=== PATIENT | female | born 1995 | race Caucasian/White ===

== ENCOUNTER → 2016-07-16 | Outpatient (REF) | payer BC | LOC: M SFHCLERA 11:23 | PROVIDERS: ATTEND Family Medicine | DX: Z51.81 Encounter for therapeutic drug level monitoring (principal); Z53.9 Procedure and treatment not carried out, unspecified reason ==

== ENCOUNTER → 2016-11-05 | Outpatient (CLI) | payer BC, MEDICAID, OTHER ==
--- NOTE | 2016-11-05 12:57 | REP ---
RIGHT WRIST, FOUR VIEWS: HISTORY: Pain. There is no acute fracture or dislocation. The joint spaces are normal in appearance. IMPRESSION: There is no acute fracture or dislocation. Signed by Medardo Garcia MD 11/05/2016 01:05 P
== END ==
LOC: M LRY 11:21
PROVIDERS: ATTEND Family Medicine
DX: M25.531 Pain in right wrist (principal)

== ENCOUNTER → 2017-01-12 | Outpatient (REF) | payer OTHER | LOC: M SFHCLERA 10:47 | PROVIDERS: ATTEND Physician Assistant | DX: J02.9 Acute pharyngitis, unspecified (principal) ==

== ENCOUNTER → 2017-07-08 | Outpatient (REF) | payer OTHER | LOC: M SFHCLERA 09:30 | PROVIDERS: ATTEND Nurse Practitioner Family | DX: R50.9 Fever, unspecified (principal) ==

== ENCOUNTER 2018-04-10 21:36 | Emergency (ER) | payer OTHER, MEDICAID ==
[2018-04-10 22:19] LABS: BASO % 0.3 % (0.0-1.0); EOS # 0.1 10^3/uL (0.0-0.50); EOS % 0.8 % (0.0-3.0); HEMATOCRIT 43.9 % (36.0-47.0); HEMOGLOBIN 13.7 g/dl (12.0-15.5); IMMATURE GRANULOCYTE % 0.3 % (0-3.0); LYMPH % 23.4 % (24.0-44.0); MEAN CORPUSCULAR HEMOGLOBIN 25.7 pg (27.0-33.0); MEAN CORPUSCULAR HGB CONC 31.2 g/dl (32.0-36.5); MEAN CORPUSCULAR VOLUME 82.4 fl (80.0-96.0); MONO # 0.8 10^3/uL (0.0-0.8); NEUTROPHILS % 69.2 % (36.0-66.0); PLATELET COUNT, AUTOMATED 281 10^3/uL (150-450); RED BLOOD COUNT 5.33 10^6/uL (4.00-5.40); RED CELL DISTRIBUTION WIDTH 14.5 % (11.5-14.5)
[2018-04-10 22:30] LABS: SPECIFIC GRAVITY UR AUTO RFX 1.026 (1.002-1.035)
[2018-04-10 22:31] LABS: KETONE, URINE AUTO RFX NEGATIVE (NEGATIVE); LEUKOCYTE ESTERASE UR AUTO RFX NEGATIVE (NEGATIVE); MUCUS, URINE RFX SMALL (NEGATIVE); NITRITE, URINE AUTO RFX NEGATIVE (NEGATIVE); RBC, URINE AUTO RFX 2 /HPF (0-3); SQUAM EPITHELIAL CELL UR AURFX 1 /HPF (0-6); WBC, URINE AUTO RFX 4 /HPF (0-3)
[2018-04-10] MEDS: NS 1,000 ML IV (22:31)
[2018-04-10] MEDS: ONDANSETRON 4MG/2ML VIAL (J2405) IV (22:31)
[2018-04-10] MEDS: KETOROLAC 30 MG/ML VIAL (J1885) IV (22:32)
[2018-04-10 22:36] LABS: ANION GAP 6 MEQ/L (8-16); BLOOD UREA NITROGEN 11 MG/DL (7-18); CARBON DIOXIDE LEVEL 29 MEQ/L (21-32); CHLORIDE LEVEL 106 MEQ/L (98-107); GLOMERULAR FILTRATION RATE > 60.0 (>60); GLUCOSE, FASTING 92 MG/DL (70-100); POTASSIUM SERUM 3.9 MEQ/L (3.5-5.1); SODIUM LEVEL 141 MEQ/L (136-145)
[2018-04-10] MEDS: BENZONATATE 100 MG CAP PO (23:47)
== END 2018-04-10 23:55 | disposition home or self-care (01) ==
LOC: M ED 21:36
DX: J20.9 Acute bronchitis, unspecified (principal); R10.9 Unspecified abdominal pain; R11.2 Nausea with vomiting, unspecified; Z88.8 Allergy status to other drugs, medicaments and biological substances; J45.909 Unspecified asthma, uncomplicated
CPT/HCPCS: J2405

== ENCOUNTER → 2018-05-03 | Outpatient (REF) | payer OTHER ==
[2018-05-03 12:31] LABS: BASO % 0.5 % (0.0-1.0); EOS # 0.1 10^3/uL (0.0-0.50); EOS % 1.3 % (0.0-3.0); HEMATOCRIT 44.6 % (36.0-47.0); HEMOGLOBIN 14.2 g/dl (12.0-15.5); IMMATURE GRANULOCYTE % 0.1 % (0-3.0); LYMPH # 2.3 10^3/uL (1.5-6.5); LYMPH % 29.8 % (24.0-44.0); MEAN CORPUSCULAR HEMOGLOBIN 26.1 pg (27.0-33.0); MEAN CORPUSCULAR HGB CONC 31.8 g/dl (32.0-36.5); MEAN CORPUSCULAR VOLUME 81.8 fl (80.0-96.0); MONO # 0.6 10^3/uL (0.0-0.8); NEUTROPHILS # 4.8 10^3/uL (1.8-7.7); NEUTROPHILS % 61.3 % (36.0-66.0); PLATELET COUNT, AUTOMATED 260 10^3/uL (150-450); RED BLOOD COUNT 5.45 10^6/uL (4.00-5.40); RED CELL DISTRIBUTION WIDTH 14.6 % (11.5-14.5); WHITE BLOOD COUNT 7.8 10^3/uL (4.0-10.0)
[2018-05-03 12:49] LABS: ALBUMIN 3.6 GM/DL (3.2-5.2); ALKALINE PHOSPHATASE 71 U/L (45-117); ALT/SGPT 18 U/L (12-78); AMYLASE 47 U/L (25-115); ANION GAP 3 MEQ/L (8-16); AST/SGOT 11 U/L (7-37); BILIRUBIN,TOTAL 0.5 MG/DL (0.2-1.0); BLOOD UREA NITROGEN 14 MG/DL (7-18); CALCIUM LEVEL 8.9 MG/DL (8.5-10.1); CARBON DIOXIDE LEVEL 31 MEQ/L (21-32); CHLORIDE LEVEL 107 MEQ/L (98-107); CREATININE FOR GFR 0.83 MG/DL (0.55-1.30); GLOMERULAR FILTRATION RATE > 60.0 (>60); GLUCOSE, FASTING 97 MG/DL (70-100); LIPASE 148 U/L (73-393); POTASSIUM SERUM 4.4 MEQ/L (3.5-5.1); SODIUM LEVEL 141 MEQ/L (136-145); TOTAL PROTEIN 7.2 GM/DL (6.4-8.2)
[2018-05-03 13:15] LABS: ESTIMATED AVERAGE GLUCOSE 108 MG/DL (60-110); HEMOGLOBIN A1c 5.4 %
== END ==
LOC: M SFHCLERA 08:51
DX: R10.84 Generalized abdominal pain (principal)

== ENCOUNTER → 2018-05-03 | Outpatient (CLI) | payer OTHER | LOC: M LRY 09:26 | DX: R10.84 Generalized abdominal pain (principal) | CPT/HCPCS: 74021 ==

== ENCOUNTER → 2018-05-05 | Outpatient (CLI) | payer OTHER | LOC: M RAD 06:48 | DX: R10.84 Generalized abdominal pain (principal) | CPT/HCPCS: 76705 ==

== ENCOUNTER → 2019-06-02 | Outpatient (REF) | payer OTHER ==
[~2019-06-02] MED LIST: IBUP-1022 PO; TESS100C PO; TEST30SO; ZOFR4TAB14 PO
[2019-06-02 11:53] LABS: ALBUMIN 3.1 GM/DL (3.2-5.2); ALT/SGPT 18 U/L (12-78); BILIRUBIN,TOTAL 0.3 MG/DL (0.2-1.0); BLOOD UREA NITROGEN 12 MG/DL (7-18); CALCIUM LEVEL 8.7 MG/DL (8.5-10.1); CARBON DIOXIDE LEVEL 27 MEQ/L (21-32); CHLORIDE LEVEL 110 MEQ/L (98-107); CHOLESTEROL LEVEL 123 MG/DL (<200); CHOLESTEROL RISK RATIO 2.673 (<5); GLOMERULAR FILTRATION RATE > 60.0 (>60); GLUCOSE, FASTING 93 MG/DL (70-100); HDL CHOLESTEROL 46 MG/DL (>40); LDL CHOLESTEROL 59 MG/DL (<100); NON-HDL-C 77 MG/DL; SODIUM LEVEL 142 MEQ/L (136-145); TOTAL PROTEIN 6.6 GM/DL (6.4-8.2); TRIGLYCERIDES LEVEL 88 MG/DL (<150)
[2019-06-02 13:20] LABS: HEMOGLOBIN A1c 5.4 %
== END ==
LOC: M SFHCLERA 07:50
PROVIDERS: ATTEND Family Medicine
DX: E66.01 Morbid (severe) obesity due to excess calories (principal)

== ENCOUNTER 2019-07-16 20:48 | Emergency (ER) | payer MEDICAID, OTHER ==
[~2019-07-16] VITALS: Ht 157.5 cm; Wt 122.7 kg
[2019-07-16] MEDS ORDERED: ALBU8.5H IH (20:55)
[2019-07-16 22:46] LABS: INFLUENZA A AMPLIFICATION NEGATIVE (NEGATIVE); INFLUENZA B AMPLIFICATION NEGATIVE (NEGATIVE)
[2019-07-16] MEDS ORDERED: GI COCKTAIL 50ML BTL(HYOSCYAMINE/MAALOX/LIDOCAINE VISCOUS)(1:3:1) PO ONE (23:00)
[2019-07-16] MEDS ORDERED: IBUPROFEN 600 MG TAB PO ONE (23:00)
[2019-07-16] MEDS ORDERED: ALBUTEROL SULFATE 2.5 MG/0.5 ML INH NEB SOLN NEB ONE (23:00)
[2019-07-17] MEDS ORDERED: MAGICMW SSP (00:42)
[2019-07-17] MEDS ORDERED: PSEU120T19 PO (00:42)
[2019-07-17] MEDS ORDERED: PROAAER10 INH (00:42)
[2019-07-17] MEDS ORDERED: IBUP-1022 PO (00:42)
[2019-07-17 00:48] VITALS: BP 121/78
--- NOTE | 2019-07-17 08:45 | REP ---
Chest x-ray: Two views. History: Cough. Decreased air movement . Comparison study: May 03, 2018 . Findings: The lungs are well inflated and free of infiltrate. The pleural angles are sharp. The heart size is normal. Pulmonary vasculature is not increased. No significant bony abnormality is seen. Impression: Negative chest x-ray. Electronically Signed by Cj Woo MD 07/17/2019 08:36 A
== END 2019-07-17 00:56 | disposition home or self-care (01) ==
LOC: M ED 20:48
DX: J01.90 Acute sinusitis, unspecified (principal); H92.01 Otalgia, right ear; J06.9 Acute upper respiratory infection, unspecified; R07.0 Pain in throat; B34.9 Viral infection, unspecified; J45.909 Unspecified asthma, uncomplicated; Z87.440 Personal history of urinary (tract) infections; Z79.899 Other long term (current) drug therapy; Z88.1 Allergy status to other antibiotic agents

== ENCOUNTER 2019-08-14 12:56 | Emergency (ER) | payer MEDICAID, OTHER ==
[~2019-08-14] VITALS: Ht 157.5 cm; Wt 116.6 kg
[~2019-08-14 12:56] MED LIST changes: +ALBU8.5H IH; +MAGICMW SSP; +PROAAER10 INH; +PSEU120T19 PO
[2019-08-14] MEDS ORDERED: QUET5TAB (13:01)
[2019-08-14] MEDS ORDERED: VENL75CA2 (13:01)
[2019-08-14] MEDS ORDERED: LIDOCAINE VISCOUS 2% SOLN 15ML UDC SS ONE (13:45)
[2019-08-14] MEDS ORDERED: TUSSICAPS ER 10/8MG CAPSULE PO ONE (13:45)
[2019-08-14] MEDS ORDERED: ONDANSETRON 4 MG ORAL DISINTEGRATING TAB (Q0162 PER 1MG) PO ONE ×2 (14:45→16:45)
[2019-08-14] MEDS ORDERED: TUSS1CAP5 PO (16:41)
[2019-08-14] MEDS ORDERED: ONDA4TAB6 PO (16:41)
[2019-08-14 16:48] VITALS: BP 127/78
== END 2019-08-14 17:10 | disposition home or self-care (01) ==
LOC: M ED 12:56
DX: J10.1 Influenza due to other identified influenza virus with other respiratory manifestations (principal); J45.909 Unspecified asthma, uncomplicated; F31.9 Bipolar disorder, unspecified; Z88.1 Allergy status to other antibiotic agents
CPT/HCPCS: 87880; 99284; Q0162

== ENCOUNTER 2019-11-19 10:13 | Emergency (ER) | payer MEDICAID, OTHER ==
[~2019-11-19] VITALS: Ht 157.5 cm; Wt 122.0 kg
[~2019-11-19 10:13] MED LIST changes: +ONDA4TAB6 PO; +QUET5TAB; +TUSS1CAP5 PO; +VENL75CA2
[2019-11-19 10:14] VITALS: BP 138/72
--- NOTE | 2019-11-19 11:47 | REP ---
FOOT: REASON: Pain after trauma. FINDINGS: The joint spaces are symmetric and relatively well maintained. There is no evidence of acute fracture or destructive osseous lesion. IMPRESSION: Negative. Electronically Signed by Christos Emery DO 11/19/2019 12:58 P
== END 2019-11-19 11:10 | disposition home or self-care (01) ==
LOC: M ED 10:13
DX: S90.32XA Contusion of left foot, initial encounter (principal); W22.8XXA Striking against or struck by other objects, initial encounter; Y92.89 Other specified places as the place of occurrence of the external cause; Z79.899 Other long term (current) drug therapy; Z88.8 Allergy status to other drugs, medicaments and biological substances; F17.210 Nicotine dependence, cigarettes, uncomplicated